=== PATIENT | female | born 1950 | race Asian ===

== ENCOUNTER 2018-12-17 21:17 | Inpatient (IN) | payer MEDICAID ==
[~2018-12-17] VITALS: Ht 142.2 cm; Wt 58.1 kg
[2018-12-17 21:20] VITALS: BP_SYST 72
--- NOTE | 2018-12-17 21:20 | NUR ---
Dr. Britt at bedside.
--- NOTE | 2018-12-17 21:20 | NUR ---
Pt BIB ALS from home with c/o abdominal x 1 week and no drainage to F/C x 1 day. Pt AAOx3, even and non-labored respirations, B/P 72/54, denies c/o C/P or SOB. F/C secure, not draining, brown colored sediment to tubing and bag. Pt.'s Daughter (Olga Aguirre) states that pt was on hospice, but no longer r/t insurance issues. She also states that pt was hospitalized over a month ago and released with F/C and home health to follow care. House cath has been in place since 11/13/2018 and has never been changed as daughter states that home health refused to do so. F/C has been cloudy x [address] Britt notified of pt status. Addendum: 12/18/18 at 0311 by SDEDAJ Pt on cardiac rn, AAOx3, denies c/o pain or discomfort at this time. No needs verbalized.
[2018-12-17] MEDS ORDERED: NACL 0.9% 1,000 ML IV ONE (21:26)
[2018-12-17] MEDS ORDERED: MORPHINE 4 MG/ML INJ. SYRINGE IVP ONE (21:30)
[2018-12-17] MEDS ORDERED: cefTRIAXone 1 GM IVPB PREMIX 50 ML IV ONE (21:30)
[2018-12-17] MEDS ORDERED: ONDANSETRON HCL 4 MG/2 ML VIAL IVP ONE (21:30)
[2018-12-17] MEDS ORDERED: ASPIRIN 81 MG TAB.CHEW PO ONE (21:30)
[2018-12-17] MEDS ORDERED: NACL 0.9% 2,000 ML IV ONE (21:30)
--- NOTE | 2018-12-17 21:30 | NUR ---
B/P , Morphine held. Dr. Britt aware. Pt not c/o pain or discomfort at this time.
--- NOTE | 2018-12-17 21:45 | NUR ---
Jayla anderson in [facility] - 12/18/[address] Britt at [facility].
--- NOTE | 2018-12-17 21:50 | NUR ---
# 24 gauge angiocath placed to Left thumb. Use of asceptic technique. Opsite placed over site. Blood return noted. Blood for lab drawn from site. Flushed with 10 cc of normal saline. No evidence of infiltration noted. Patient tolerated well.
--- NOTE | 2018-12-17 22:00 | NUR ---
B/P 86/45, P 80. NS Bolus in progress to patent PIV to left thumb.
--- NOTE | 2018-12-17 22:00 | NUR ---
Note sherrione in EDM - 12/18/18 at 0056 by CAITLIN # 24 gauge angiocath placed to Left thumb. Use of asceptic technique. Opsite placed over site. Blood return noted. Blood for lab drawn from site. Flushed with 10 cc of normal saline. No evidence of infiltration noted. Patient tolerated well.
[2018-12-17 22:12] LABS: HEMATOCRIT 37.8 % (36-48); HEMOGLOBIN 12.9 g/dL (12.0-16.0); MEAN CORPUSCULAR HEMOGLOBIN 29 pg (27-31); MEAN CORPUSCULAR VOLUME 86 fL (79.0-98.0); RED BLOOD CELL COUNT(AUTO) 4.41 MIL/uL (4.2-6.2); WHITE BLOOD COUNT (AUTO) 10.6 K/uL (4.8-10.8)
[2018-12-17 22:13] LABS: BASOPHILS # (AUTO) 0.1 K/uL (0.0-0.2); BASOPHILS % (AUTO) 0.5 % (0.0-2.0); EOSINOPHILS # (AUTO) 0.1 K/uL (0.0-0.4); EOSINOPHILS % (AUTO) 1.3 % (0.0-4.0); LYMPHOCYTES # (AUTO) 2.2 K/uL (1.0-5.5); LYMPHOCYTES % (AUTO) 20.5 % (20.5-51.5); MEAN CORPUSCULAR HGB CONC 34 % (32-36); MONOCYTES # (AUTO) 0.8 K/uL (0.0-1.0); MONOCYTES % (AUTO) 7.4 % (1.7-9.3); NEUTROPHILS # (AUTO) 7.4 K/uL (1.8-7.7); NEUTROPHILS % (AUTO) 70.3 % (40.0-70.0); PLATELET COUNT (AUTO) 270 K/uL (130-430); RED CELL DISTRIBUTION WIDTH 14.9 % (9.0-15.0)
[2018-12-17 22:25] LABS: CALCIUM 9.4 mg/dL (8.4-11.0); CREATININE 0.59 mg/dL (0.55-1.30); POTASSIUM 3.6 mmol/L (3.5-5.1)
[2018-12-17 22:26] LABS: PROTHROMBIN TIME 10.2 SECS (9.5-12.5)
[2018-12-17 22:29] LABS: TOTAL BILIRUBIN 1.3 mg/dL (0.0-1.0)
--- NOTE | 2018-12-17 22:30 | NUR ---
B/P 126/65, P 74. No needs verbalized at this time.
--- NOTE | 2018-12-17 22:45 | NUR ---
# 16 FR Olmos catheter with use of sterile technique. Immediate return of 100 cc pale, brown, cloudy, sedimented urine noted. Bedside drainage bag placed below level of bladder. Urine sample collected and sent to lab. Pt tolerated procedure fair. Patient arrived with olmos in place, changed due to standard of practice prior to admission. Patient unable to toilet self.
[2018-12-17 22:55] LABS: BILIRUBIN,URINE NEGATIVE (NEGATIVE); BLOOD, URINE 2+ (NEGATIVE); CLARITY/URINE CLOUDY (CLEAR); COLOR,URINE YELLOW (YELLOW); GLUCOSE,URINE NEGATIVE (NEGATIVE); KETONES,URINE NEGATIVE (NEGATIVE); LEUKOCYTE ESTERASE ,URINE 3+ (NEGATIVE); NITRITE, URINE NEGATIVE (NEGATIVE); PH,URINE 6.5 (5.0-8.0); PROTEIN URINE TRACE (NEGATIVE); UROBILINOGEN,URINE 0.2 (0.2-1.0)
[2018-12-17 23:03] LABS: RBC,URINE 20-50 /HPF (0-3); WBC,URINE >100 /HPF (0-3)
[2018-12-17 23:04] LABS: BACTERIA,URINE MANY /HPF (None Seen)
--- NOTE | 2018-12-17 23:30 | NUR ---
B/P 100/52, P 80. Denies c/o pain or discomfort, no needs verbalized.
[2018-12-18] VITALS (15 sets, daily range): BP systolic 114–159
[2018-12-18] MEDS ORDERED: D5/0.45 NS 1,000 ML IV SCH
--- NOTE | 2018-12-18 00:05 | NUR ---
B/P 66/42, P 75. Pt AAOx3, even and non-labored respirations, denies c/o pain or discomfort. Dr. Britt notified of hypotensive state and need for large bore IV access.
--- NOTE | 2018-12-18 00:10 | NUR ---
NS boluses x 2 continue to infuse through patent 24 GA PIV to left thumb without difficulty, no s/s infiltration. B/P 83/50, P 72. Dr. Britt at bedside to place EJ.
--- NOTE | 2018-12-18 00:41 | NUR ---
Unsuccessful EJ placement attempt per Dr. Britt. Dr. Britt now attempting to place Central Line.
--- NOTE | 2018-12-18 00:45 | NUR ---
B/P 100/68, P 76. No needs verbalized.
[2018-12-18] MEDS ORDERED: LIDOCAINE 1%, 20 ML MDV 20 ML ONE (00:54)
--- NOTE | 2018-12-18 01:00 | NUR ---
Unsuccessful Subclavian Central Line attempt per Dr. Britt. Small amount of bruising noted to area, no active bleeding, covered with gauze dsg and secured with tape.
--- NOTE | 2018-12-18 01:24 | NUR ---
# 20 gauge angiocath ultrasound guided and placed to Left Upper Arm per ABDON Cruz. Use of asceptic technique. Opsite placed over site. Blood return noted. Patient tolerated fair. NS Bolus continues to infuse without difficulty, no evidence of infiltration noted.
--- NOTE | 2018-12-18 01:30 | NUR ---
B/P 132/88, P 76. Denies c/o pain or discomfort, no needs verbalized.
--- NOTE | 2018-12-18 01:32 | NUR ---
Patient will be admitted to care of Dr. Guthrie. Admitted to ICU unit. Will go to room 2. Belongings list completed. Summary report printed. Report will be given at bedside.
--- NOTE | 2018-12-18 02:10 | NUR ---
Admission Assessment Pt in bed AAOx4, but language barrier (Mandarin). SR shown on monitor. Pt on RA, saturations in the mid 90s. No s/s of distress noted. Pt has Left thumb 24g and CARLOS 20g in place. Sites C/D/I. House in place draining cloudy yellow urine to gravity. Bed locked in lowest position, safety precautions in place, and call light in reach. Will continue to monitor.
--- NOTE | 2018-12-18 02:49 | NUR ---
called Dr. Richards's exchange @[phone] and left a message with Mary for morning consult
[2018-12-18] MEDS ORDERED: GABA-531 PO (03:06)
[2018-12-18] MEDS ORDERED: VITD2000 PO (03:06)
[2018-12-18] MEDS ORDERED: CYAN10009 PO (03:06)
[2018-12-18] MEDS ORDERED: METO25TA6 PO (03:06)
[2018-12-18] MEDS ORDERED: ANAS1TAB51 PO (03:06)
[2018-12-18] MEDS ORDERED: CALC-823 PO (03:06)
[2018-12-18] MEDS ORDERED: LIP10 PO (03:06)
[2018-12-18] MEDS ORDERED: ASA81 PO (03:06)
--- NOTE | 2018-12-18 03:06 | NUR ---
Medication reconciliation completed with information provided by patient. Any prior medication reconciliation on file was reviewed and corrected.
--- NOTE | 2018-12-18 04:50 | NUR ---
RN Rounds Pt in bed asleep, no s/s of distress noted. VSS. IV site C/D/I. Will continue to monitor.
[2018-12-18] MEDS ORDERED: ONDANSETRON HCL 4 MG/2 ML VIAL IVP PRN (06:15)
[2018-12-18] MEDS ORDERED: LORazepam 2 MG/ML VIAL IVP PRN (06:15)
[2018-12-18] MEDS ORDERED: ACETAMINOPHEN 325 MG TABLET PO PRN (06:15)
[2018-12-18] MEDS ORDERED: HYDROcodone/ACETAMIN 5-325 MG TAB (NORCO/ VICODIN) PO PRN (06:15)
[2018-12-18] MEDS ORDERED: HYDROcodone/ACETAMIN 10-325 MG TAB PO PRN (06:15)
--- NOTE | 2018-12-18 06:30 | NUR ---
Closing Note Pt in bed asleep. SR shown on the monitor. Pt is on RA. Saturations remain in the mid 90s. Pt has Rt thumb 24g and CARLOS 20g. Sites C/D/I. No s/s of infiltration noted. D5 1/2 NS running @100mL. Pt has olmos catheter in place draining yellow/cloudy urine to gravity. Bed locked in lowest position, safety precautions in place, and call light in reach. Will endorse to oncoming shift.
--- NOTE | 2018-12-18 07:00 | NUR ---
CONSULTATION CALLED FOR DR PATRIA PAYTON IS MANAGER GREEN SPOKE WITH SIERRA
--- NOTE | 2018-12-18 07:10 | NUR ---
Endorsement Report given to Oncoming RN at bedside via SBAR approach.
--- NOTE | 2018-12-18 07:30 | NUR ---
Opening Statement Received Care Plan via SBAR from endorsing nurse Juan Ramon COPPOLA.
[2018-12-18] MEDS: CALCIUM CARBONATE/VITAMIN D3 1 TAB TABLET PO SCH ×2 (08:25→22:00)
[2018-12-18] MEDS: GABAPENTIN 300 MG CAPSULE PO SCH ×3 (08:25→22:00)
[2018-12-18] MEDS: METOPROLOL TARTRATE 25 MG TABLET PO SCH ×2 (08:25→22:00)
[2018-12-18] MEDS ORDERED: CYANOCOBALAMIN 1000 mCg TABLET PO SCH (09:00)
[2018-12-18] MEDS ORDERED: ANASTROZOLE 1 MG TABLET (ARIMIDEX) PO SCH (09:00)
[2018-12-18] MEDS ORDERED: CHOLECALCIFEROL (VITAMIN D3) 2,000 UNIT TABLET PO SCH (09:00)
[2018-12-18] MEDS ORDERED: ASPIRIN 81 MG TAB.CHEW PO SCH (09:00)
--- NOTE | 2018-12-18 09:20 | NUR ---
DR PLASCENCIA at bedside, new orders received
[2018-12-18] MEDS ORDERED: CEFEPIME 1 GM in D5W 50 ML IV ONE (10:15)
[2018-12-18] MEDS ORDERED: ENOXAPARIN SODIUM 40 MG/0.4 ML SYRINGE SUBCUT ONE (10:15)
--- NOTE | 2018-12-18 10:17 | NUR ---
PAGED DR Dave SUMMERS SPOKE WITH TESSIE
--- NOTE | 2018-12-18 10:45 | NUR ---
TRANSFER TO [facility]: Transferred patient to [facility] on her ICU bed using continuous portable monitoring, patient placed in MST 121-C, patient tolerated well with minimal discomfort, no signs of distress noted. Gave SBAR report and endorsed plan of care to MST RN.
--- NOTE | 2018-12-18 11:02 | NUR ---
Nutrition Update Lorenzo Scale 12 noted. Pt admitted for urosepsis. Diet: cardiac BMI: 28.7 kg/m2 RD to follow per nutrition care standards.
--- NOTE | 2018-12-18 11:10 | NUR ---
INITIAL NOTE Received patient from ICU. Patient is awake, alert and oriented x4, Mandarin speaking, denies any pain. Breathing even and unlabored. IV sites noted on the CARLOS 20G and left thumb 24G, saline locked. Awaiting for PICC line insertion at this time. F/C in place, noted with visible urine output. Vital signs taken and within normal limits. Safety and fall precautions in place, bed low and locked, alarm on, side rails up x3, call light within reach, will continue to monitor.
[2018-12-18] MEDS ORDERED: GENTAMICIN 100 mg/50 mL NS 50 ML IV ONE (13:15)
--- NOTE | 2018-12-18 13:34 | NUR ---
Nino Planning: late entry: transfer to [facility] work: >> received call from rashid Melendez at [facility] requesting transfer pt to [facility]. She plans for [facility] or [facility] . >> RASHID notified pt.'s dtr Olga who agreed with the transfer. Dr. Guthrie made aware the the [facility] md will be calling for report. Rashid requested the md to give nurse the transfer order as well. Addendum: 12/18/18 at 1352 by Anna Manuel RN >> Rashid faxed pt's referral package to Nora per her request. She then stated the pt. is accepted at [facility], under dr. Collier. No room assigned yet. She will call nursing station when bed available and to give instructions to transfer and phone number to report. >> Per Nora, for ambulance transportation, to use [facility], [facility] or [facility] , BLS transfer with auth # [id number]. Jennifer gamboa to set up the " will call " ambulance transfer. -- ABDON Centeno made aware.
--- NOTE | 2018-12-18 14:14 | NUR ---
Discharge Planning: DCP completed patient packet and ordered CD from radiology. LOUANNP arranged transportation with [facility] ([phone]) Will Call S # [phone]. Trip# [id number]
--- NOTE | 2018-12-18 14:45 | NUR ---
ROUNDS Patient is awake, in stable condition. No respiratory distress noted, on room air. Denies any pain/discomfort. Son is at the bedside, son is also aware of the possible transfer today. No further needs at this time. Safety precautions observed, call light within reach, will continue to monitor.
--- NOTE | 2018-12-18 18:26 | NUR ---
CLOSING NOTE Patient is awake, no s/s of acute distress, eating dinner, no respiratory distress noted, on room air. Awaiting for PICC line nurse to insert PICC line as ordered. Patient is anticipating transfer to [facility], awaiting for call from [facility] regarding bed availability. F/C in place. Safety and fall precautions in place, bed low and locked, side rails up x3, call light within reach. All needs met and anticipated throughout the shift, will endorse plan of care.
--- NOTE | 2018-12-18 19:01 | NUR ---
PICC LINE BRYANT COPPOLA PICC LINE BRYANT COPPOLA CAME TO START THE PICC LINE INSERTION AT THIS TIME.
--- NOTE | 2018-12-18 20:30 | NUR ---
PICC line RN Unable to start a Left arm PICC line x 4 attempts per PICC RN Amirah, pt was c/o pain and L. arm swollen. CRN informed. Will notify .
--- NOTE | 2018-12-18 20:45 | NUR ---
Daughter Olga at bedside and signed Pt's Transfer acknowledgement form.
[2018-12-18] MEDS ORDERED: cefTRIAXone 1 GM IVPB PREMIX 50 ML IV SCH (21:00)
[2018-12-18] MEDS ORDERED: ATORVASTATIN 10 MG TABLET PO SCH (21:00)
[2018-12-18] MEDS ORDERED: CEFEPIME 1 GM in D5W 50 ML IV SCH (21:00)
--- NOTE | 2018-12-18 21:00 | NUR ---
PAGED DR Mi SUMMERS SPOKE WITH JAROCHO
--- NOTE | 2018-12-18 21:18 | NUR ---
Spoke with Maura from [facility] and gave bed in [facility] 215 bed 2. Give report to [phone].
--- NOTE | 2018-12-18 21:25 | NUR ---
Spoke with Dr. Guthrie re PICC RN unable to start a PICC line. Per MD ok to transfer without a peripheral line, they can just put central line in [facility].
--- NOTE | 2018-12-18 23:00 | NUR ---
Report given to ABDON Oliveira at [facility] pt to go to 312 bed 2. Daughter Olga aware of transfer tonight.
--- NOTE | 2018-12-18 23:45 | NUR ---
TRANSFER [facility] ambulance here to [facility] pt. Pt alert, awake, no s/s distress noted. ID band and tele box removed. Pt just have cellphone and lawn care worker at bedside.
[2018-12-19] MEDS ORDERED: ENOXAPARIN SODIUM 40 MG/0.4 ML SYRINGE SUBCUT SCH (09:00)
== END 2018-12-19 | disposition short-term general hospital (02) | DRG 720 ==
LOC: EDBD 21:17 → SED 21:17 → SIC 12-18 00:10 → STU 12-18 10:53
PROVIDERS: ADMIT Preventive Medicine Preventive Medicine/Occupational Environmental Medicine; ATTEND Preventive Medicine Preventive Medicine/Occupational Environmental Medicine
DX: A41.9 Sepsis, unspecified organism (principal); E87.2 Acidosis; E87.1 Hypo-osmolality and hyponatremia; G36.9 Acute disseminated demyelination, unspecified; R17 Unspecified jaundice; E78.5 Hyperlipidemia, unspecified; N31.9 Neuromuscular dysfunction of bladder, unspecified; H54.40 Blindness, one eye, unspecified eye; N39.0 Urinary tract infection, site not specified; R73.9 Hyperglycemia, unspecified; Z87.440 Personal history of urinary (tract) infections; Z88.2 Allergy status to sulfonamides; Z88.8 Allergy status to other drugs, medicaments and biological substances; Z79.899 Other long term (current) drug therapy; Z79.82 Long term (current) use of aspirin
CPT/HCPCS: 36415; 71045; 80053; 81000-TC; 82550-TC; 83605; 83690-TC; 84484; 85025; 85610-TC; 85730-TC; 87040-TC; 87081; 87086; 87186-TC; 93005; 93970; 96361; 96365; 99291; 99292; C1751; G0378; J0692; J0696; J1580; J1650; J2001; J7060